=== PATIENT | female | born 1990 | race Caucasian/White ===

== ENCOUNTER 2017-07-23 07:21 | Outpatient (CLI) | payer MEDICAID ==
[2017-07-23 10:57] LABS: THYROID STIMULATING HORMONE 2.44 uIU/mL (0.34-5.60)
[2017-07-23 11:02] LABS: PROLACTIN 22.24 ng/mL
[2017-07-23 11:24] LABS: FOLLICLE STIMULATING HORMONE 4.12 mIU/mL
[2017-07-23 11:25] LABS: LUTEINIZING HORMONE 5.87 mIU/mL
[2017-07-24 10:27] LABS: PROGESTERONE 10.6 ng/mL
== END 2017-07-23 07:22 | disposition home or self-care (01) ==
LOC: LAB.F 07:21
PROVIDERS: ATTEND Registered Nurse
DX: N91.4 Secondary oligomenorrhea (principal)
CPT/HCPCS: 36415; 81599; 82670; 83001; 83002; 84144; 84146; 84402; 84403; 84443

== ENCOUNTER 2017-07-25 13:16 | Outpatient (CLI) | payer MEDICAID ==
[2017-07-25 19:18] LABS: HB2 TOTAL 14.8 g/dL; HEMOGLOBIN A1C 0.39 g/dL; HEMOGLOBIN A1C % 4.6 % (4.6-6.2)
== END 2017-07-25 13:17 | disposition home or self-care (01) ==
LOC: LAB.F 13:16
PROVIDERS: ATTEND Registered Nurse
DX: N91.4 Secondary oligomenorrhea (principal)
CPT/HCPCS: 83036

== ENCOUNTER 2017-08-21 07:34 | Outpatient (CLI) | payer MEDICAID ==
--- NOTE | 2017-08-21 09:39 | Ultrasound Report ---
LEFT BREAST ULTRASOUND: 08/21 HISTORY: Left breast pain. TECHNIQUE: Real-time scanning by the mobility developer of the entire left breast with saved static images reviewed. FINDINGS: No cystic or solid mass, abnormal fluid collection or other abnormality is seen. IMPRESSION: NEGATIVE LEFT BREAST ULTRASOUND. BI-RADS CATEGORY 1 - NEGATIVE. SUGGEST CLINICAL FOLLOWUP. TD: 08/21/2017 09:17
== END 2017-08-21 07:35 | disposition home or self-care (01) ==
LOC: DI 07:34
PROVIDERS: ATTEND Registered Nurse
DX: N64.4 Mastodynia (principal)
CPT/HCPCS: 76642

== ENCOUNTER 2017-08-21 07:36 | Outpatient (CLI) | payer MEDICAID ==
--- NOTE | 2017-08-21 09:41 | Ultrasound Report ---
PELVIC ULTRASOUND: 08/21/2017 HISTORY: Secondary oligomenorrhea. TECHNIQUE: Real-time scanning by the executive cyber leader with saved static images reviewed. FINDINGS: Last menstrual period 08/10/2017. Normal normal-appearing anteverted uterus 7.4 x 4.1 x 5.1 cm, volume 81 mL. Normal 11 mm endometrial echo. Right ovary 4.2 x 2.5 x 3.2 cm, volume 17.6 mL. Small hemorrhagic cyst, 1.7 cm in diameter. Left ovary 3.5 x 1.9 x 1.5 cm, volume 5.2 mL. Normal echotexture and blood flow. Free fluid: Trace. IMPRESSION: NEGATIVE PELVIC ULTRASOUND. TD: 08/21/2017 09:19
== END 2017-08-21 07:37 | disposition home or self-care (01) ==
LOC: DI 07:36
PROVIDERS: ATTEND Registered Nurse
DX: N91.4 Secondary oligomenorrhea (principal); N64.4 Mastodynia
CPT/HCPCS: 76642; 76830; 76856

== ENCOUNTER 2017-09-30 11:20 | Outpatient (CLI) | payer MEDICAID | END 2017-09-30 11:21 | disposition home or self-care (01) | LOC: LAB.F 11:20 | PROVIDERS: ATTEND Nurse Practitioner Obstetrics & Gynecology | DX: Z32.00 Encounter for pregnancy test, result unknown (principal) | CPT/HCPCS: 36415; 84702 ==

== ENCOUNTER 2017-10-02 10:28 | Outpatient (CLI) | payer MEDICAID | END 2017-10-02 10:29 | disposition home or self-care (01) | LOC: LAB.F 10:28 | PROVIDERS: ATTEND Nurse Practitioner Obstetrics & Gynecology | DX: Z32.00 Encounter for pregnancy test, result unknown (principal) | CPT/HCPCS: 36415; 84702 ==

== ENCOUNTER 2017-10-12 08:06 | Outpatient (CLI) | payer MEDICAID ==
--- NOTE | 2017-10-12 20:27 | Ultrasound Report ---
Procedure Date: 10/12/2017 Accession Number: [id number] / [id number] Procedure: US - OB First Trimester CPT Code: FULL RESULT: EXAM: FIRST TRIMESTER OBSTETRIC ULTRASOUND (Less than 11 weeks) EXAM DATE: 10/12/2017 02:03 PM. CLINICAL HISTORY: ENCTR FOR SCREENING. LMP: 08/28/2017. COMPARISONS: None. TECHNIQUE: Transabdominal and transvaginal ultrasound examination with static image documentation. CLINICAL DATES: EGA 6 weeks 3 days with CINTHYA 06/04/2018 based on LMP. ASSESSMENT: Gestational Sac: Anterior gestational sac containing an embryo and yolk sac are noted. Embryo: CRL (crown-rump length) 4.5 mm = 6 weeks 3 days. Cardiac activity: 113 beats per minute. Yolk sac: 3.9 mm. Amniotic fluid: Not accurately assessed at this gestational age. Early placenta: Not visible at this gestational age. Other: No perigestational fluid collection demonstrated. MATERNAL STRUCTURES: Uterus: Anteverted. Unremarkable. Cervix: Closed. Right Ovary/Adnexa: Anechoic 1.5 cm right ovarian cyst without concerning features. The ovary measures 2.8 x 1.8 x 2.1 cm, volume 4.5 cc. Left Ovary/Adnexa: Unremarkable. The ovary measures 3.6 x 2.7 x 2.3 cm, volume 11.7 cc. Free Fluid: None. Other: None. IMPRESSION: 1. Single viable intrauterine at EGA 6 weeks 3 days with CINTHYA 06/02/2018 based on crown-rump length, which is concordant with clinical dates. 2. Assigned dating is CINTHYA 6 weeks 3 days based on LMP. 3. No complications. Specifically, no subchorionic hemorrhage. 4. No adnexal lesions. Simple 1.5 cm right ovarian cyst. Otherwise, both ovaries and adnexa are normal. [facility]
== END 2017-10-12 08:07 | disposition home or self-care (01) ==
LOC: DI 08:06
PROVIDERS: ATTEND Nurse Practitioner Obstetrics & Gynecology
DX: Z36.9 Encounter for antenatal screening, unspecified (principal); O34.81 Maternal care for other abnormalities of pelvic organs, first trimester; N83.291 Other ovarian cyst, right side; Z3A.01 Less than 8 weeks gestation of pregnancy
CPT/HCPCS: 76801; 76817